=== PATIENT | female | born 1980 | race Caucasian/White ===

== ENCOUNTER → 2017-01-04 | Outpatient (CLI) | payer BC ==
[~2017-01-04] MED LIST: ACET-749 PO; DOCU-94 PO; FERR325T5 PO; LEVO88TA3 PO; PRENTAB26 PO; PRLSR20 PO; SENN-58 PO
== END | disposition home or self-care (01) ==
LOC: C.LABSPEC 14:14
PROVIDERS: ATTEND Obstetrics & Gynecology
DX: Z34.03 Encounter for supervision of normal first pregnancy, third trimester (principal)

== ENCOUNTER 2017-01-27 07:48 | Outpatient (CLI) | payer BC ==
[2017-02-09] MEDS ORDERED: ACET-749 PO (07:21)
[2017-02-09] MEDS ORDERED: SENN-58 PO (07:21)
== END 2017-01-27 09:55 | disposition home or self-care (01) ==
LOC: C.LD 07:48 → C.OPB 07:48
PROVIDERS: ATTEND Obstetrics & Gynecology
DX: O36.8130 Decreased fetal movements, third trimester, not applicable or unspecified (principal); Z3A.39 39 weeks gestation of pregnancy

== ENCOUNTER 2017-02-06 11:09 | Inpatient (IN) | payer BC ==
[~2017-02-06] VITALS: Ht 160 cm; Wt 69.1 kg
[2017-02-06] MEDS ORDERED: LACTATED RINGER'S 1000ML 1,000 ML IV PRN (11:53)
[2017-02-06] MEDS ORDERED: PATIENT'S HEIGHT AND/OR WEIGHT NEEDED SCH (12:30)
[2017-02-06] MEDS ORDERED: MISOPROSTOLTAB 50 MCG TAB PO ONE (12:30)
[2017-02-06 12:34] LABS: HEMATOCRIT 36.4 % (37-47); MEAN CELL VOLUME 89.4 fL (80-100); MEAN CORPUSCULAR HGB CONC 34.6 g/dl (32-36); MEAN PLATELET VOLUME 10.1 fL (7.4-10.4); PLATELET COUNT 233 K/uL (130-400); RED BLOOD COUNT 4.07 M/uL (4.2-5.4); WHITE BLOOD COUNT 7.67 K/uL (4.8-10.8)
[2017-02-06 15:00] VITALS: Ht 160 cm; Wt 69.1 kg
[2017-02-06] MEDS ORDERED: PRLSR20 PO (15:08)
[2017-02-06] MEDS ORDERED: DOCU-94 PO (15:08)
[2017-02-06] MEDS ORDERED: PRENTAB26 PO (15:08)
[2017-02-06] MEDS ORDERED: LEVO88TA3 PO (15:08)
[2017-02-06] MEDS: LACTATED RINGER'S 1000ML 1,000 ML IV SCH (22:37)
[2017-02-06] MEDS ORDERED: BUTORPHANOL TARTRATE 1 MG/ML VIAL IV PRN (23:15)
[2017-02-07] MEDS ORDERED: BUPIVACAINE 0.25% 30 ML VIAL ONE ×2 (01:06→15:29)
[2017-02-07] MEDS ORDERED: FENTANYL CITRATE INJ 50 MCG/1 ML 2 ML VIAL ONE ×3 (01:07→20:45)
[2017-02-07] MEDS ORDERED: EpHEDrine SULFATE INJ 50 MG/ML AMP ONE (01:07)
[2017-02-07] MEDS ORDERED: LACTATED RINGER'S 1000ML 500 ML IV PRN ×2 (01:08→02:06)
[2017-02-07] MEDS ORDERED: FENTANYL 2MCG/ML ROPIV 1.25MG/ML 100ML BAG EPI ONE (01:08)
[2017-02-07] MEDS ORDERED: NALOXONE HCL INJ 1 MG in SODIUM CHLORIDE 0.9% 1000ML 1,000 ML IV PRN (02:06)
[2017-02-07] MEDS: OXYTOCIN 30 UNITS/500ML NSS IV PRN ×2 (02:10→21:01)
[2017-02-07] MEDS ORDERED: NALOXONE HCL INJ 0.4 MG/1 ML VIAL/CARP IV PRN (02:15)
[2017-02-07] MEDS ORDERED: EpHEDrine SULFATE INJ 50 MG/ML AMP IV PRN (02:15)
[2017-02-07] MEDS ORDERED: DiphenhydrAMINE HCL 50 MG/ML VIAL IV PRN (02:15)
[2017-02-07] MEDS: ONDANSETRON INJ 2 MG/ML 2 ML VIAL IV PRN ×3 (03:18→15:33)
[2017-02-07] MEDS: PROMETHAZINE HCL INJ 12.5 MG in SODIUM CHLORIDE 0.9% 50ML 50 ML IV PRN ×2 (04:59→11:19)
[2017-02-07] MEDS: FENTANYL 2MCG/ML ROPIV 1.25MG/ML 100ML BAG EPI PRN ×6 (06:59→18:53)
[2017-02-07] MEDS: LACTATED RINGER'S 1000ML 1,000 ML IV SCH ×2 (09:55→18:35)
[2017-02-07] MEDS ORDERED: NURSING VERBAL MED ORDER ONE (15:30)
[2017-02-07] MEDS ORDERED: LACTATED RINGER'S 1000ML 1,000 ML IV SCH (21:12)
[2017-02-07] MEDS ORDERED: BENZOCAINE 20% AER SPR 82.5 GM CAN EXT PRN (21:15)
[2017-02-07] MEDS ORDERED: HYDROCORTISONE ACETATE 25 MG SUPP PR PRN (21:15)
[2017-02-07] MEDS ORDERED: DIPHTHERIA/TETANUS/PERTUSSIS 0.5 ML SYR/VIAL IM. ONE (21:15)
[2017-02-07] MEDS ORDERED: SUPERCREAM 0.870 % 15GM JAR EXT PRN (21:15)
[2017-02-07] MEDS ORDERED: LANOLIN OINT EXT PRN ×2 (21:15)
[2017-02-07] MEDS ORDERED: OXYTOCIN 30 UNITS/500ML NSS IV PRN (21:15)
[2017-02-07] MEDS ORDERED: ACETAMINOPHEN 325 MG TAB PO PRN (21:15)
--- NOTE | 2017-02-07 21:44 | Anesthesia Procedure Note ---
Anesthesia Epidural Removal Nt Date & Time Feb 07, 2017 at 21:44 Vital Signs Pain Intensity: 5.0 Notes Mental Status: alert / awake / arousable, participated in evaluation Nausea / Vomiting: adequately controlled Pain: adequately controlled Airway Patency, RR, SpO2: stable & adequate BP & HR: stable & adequate Hydration State: stable & adequate Neuraxial Anesthesia: was administered, sensory block is resolving Anesthetic Complications: no major complications apparent, pt satisfied with anesthetic care Epidural: removed without complications, with tip intact
[2017-02-07] MEDS: IBUPROFEN 600 MG TAB PO PRN (23:08)
[2017-02-08] VITALS (7 sets, daily range): BP systolic 99–104; BP diastolic 63–72; PULSE 87–104; TEMP 36.5–37; O2SAT 96–98
[2017-02-08] MEDS: HYDROmorphone HCL 2 MG TAB PO PRN ×2 (00:40→06:41)
[2017-02-08] MEDS: IBUPROFEN 600 MG TAB PO PRN ×5 (04:02→23:28)
--- NOTE | 2017-02-08 07:01 | DELIVERY SUMMARY ---
DATE OF OPERATION: 02/07/2017 PREOPERATIVE DIAGNOSES: 1. Meyers intrauterine at 41 and 1/7 weeks. 2. Premature rupture of membranes. 3. Induction of labor. 4. Group B strep negative. POSTOPERATIVE DIAGNOSES: Same plus maternal exhaustion and nonreassuring heart tones. PROCEDURE: Vacuum assisted vaginal delivery and repair of fourth degree laceration. SURGEON: Dr. León. NEEDLE LOOM OPERATOR HELPER: None. ESTIMATED BLOOD LOSS: 500. FINDINGS: Placenta spontaneous and intact with a 3-vessel cord. Terminal meconium was evident. Laceration involving the distal 1 cm of the rectal mucosa as well as complete disruption of the external anal sphincter. COMPLICATIONS: None. DISPOSITION: Stable in labor and delivery. DESCRIPTION: Nina Beltran is a G1, P0 who was seen in the office at 41 weeks gestational age, complaining of leakage of fluids since 2 days prior. On exam, the patient was found to have rupture of membranes for clear fluid. She was sent to labor and delivery for induction of labor. Her induction was started with Cytotec and ultimately Pitocin as well as rupture of a forebag. The patient was provided with an epidural for pain management. She reached complete dilation in the evening of 02/07/2017 and was coached through pushing. Although her pushing efforts were excellent, progress was slow. She did ultimately bring the head of the baby to but at that point was reaching complete exhaustion. During the second stage of labor, heart tones were intermittently category 1 but at the majority of times were showing deep decelerations, some of which were variable, many of which were late. For the very last few pushes, Nina was coached. She was offered a midline episiotomy which she accepted and this was performed. She was still unable to bring the head to and at this point she was offered a vacuum assisted vaginal delivery which she did accept. The bladder was emptied of urine via straight catheterization. The fetus was in the left occiput anterior position. A vacuum was attached to the flexion point. Suction was applied in the green zone on the Kiwi cup and during the next push, gentle traction was used to bring the head to delivery. The vacuum was dearticulated while the head was and the delivery of the remainder of the head to the neck level was accomplished spontaneously. There was noted to be a tight nuchal cord. While I was attempting to reduce this, the patient gave a spontaneous pushing effort which forced the fetus to deliver through the cord. There was no difficulty in delivering the shoulders or trunk of the . The was placed on the maternal abdomen where the cord was doubly clamped and quickly cut by the father of the baby and the was then taken to the warmer for attention. Apgars of 6 and 9 were ultimately assigned. The placenta delivered spontaneously and was found to be intact with a 3-vessel cord. There was noted to be terminal meconium. There was also a creamy white fluid noted on the placenta. It is unclear if this was vernix or what this might have been. The placenta will be sent for examination. There was no foul odor or other indication that this may have been pus. After delivery of the placenta, examination revealed a fourth degree laceration including disruption of the distal 1 cm of the rectal mucosa as well as complete disruption of the external anal sphincter and the perineal body. I asked for several extra pairs of 6-inch hand gloves be placed on the table as well as both 2-0 and 3-0 Vicryl suture. With an teachers assistant sterile gloved and holding a retractor, I was able to get excellent visualization and repair began with an imbricating suture, closing the rectal mucosa in a running locked manner. The rectal mucosa was closed from the apex down to the anal verge. Clamps were then used to identify and grasp the disrupted ends of the external anal sphincter and its capsule. Four [id number] sutures were used on the anterior, posterior, superior and inferior aspects in order to completely reapproximate this in an end-to-end fashion. Repair then proceeded as would be normal for a second degree laceration including repair of the vaginal posterior laceration from the apex down to the introitus. A crown suture was placed using 2-0 Vicryl and a second crown was placed just below this to completely reapproximate and strengthen the perineal body. The skin was then closed over the perineum from the anus up to the posterior fourchette using the 3-0 Vicryl. At the completion of repair, both hemostasis and complete cosmetic reapproximation had been achieved. One final rectal exam was performed, which did reveal that there were no sutures palpable and no defect in the rectum remained. The patient was advised of her fourth degree tear and the need to avoid constipation and use stool softeners and to not avoid a bowel movement and create constipation. At the present time, both mother and are in their delivery room, having tolerated the procedure well. I attest to the content of the Intraoperative Record and any orders documented therein. Any exceptio ns are noted below.
--- NOTE | 2017-02-08 07:05 | Progress Note ---
Subjective Feb 08, 2017. Subjective conversation w/ patient, physical exam Ambulation: limited ambulation (pain in vaginal area when walking) Voiding: no voiding problems Passing Gas: Yes Diet Tolerance: Regular Diet Lochia: Small Feeding Type: Breast Feeding Review of Systems Constitutional: No chills, No fever Respiratory: No cough, No shortness of breath Cardiac: No chest pain, No edema Abdomen: No nausea, No pain, No vomiting Objective Vital Signs Date Time Temp Pulse Resp B/P Pulse Ox O2 Delivery O2 Flow Rate FiO2 02/08/17 03:30 36.6 99 18 102/64 Physical Exam General Appearance: WELL-APPEARING, NO APPARENT DISTRESS Respiratory/Chest: lungs clear, no respiratory distress Cardiovascular: regular rate, rhythm, no murmur Abdomen: non tender Fundus: Firm, Non-Tender, Relation to Umbilicus (at the umbilicus) Extremities: non-tender, no calf tenderness Laboratory Results Last 24 Hours Test 02/08/17 06:19 Assessment and Plan Post- Day#: 1 Continue Routine Care: Resident Physician Supervision Note: I interviewed and examined the patient. Discussed with Dr. Vaughn and agree with findings and plan as documented in the note. Any exceptions or clarifications are listed here: Pain adequately controlled with dilaudid. + flatus, no BM yet. Fourth degree laceration. Documented By: Henny León s/p Day 1 - vital reviewed and wnl - Blood: B+, GBS-, Rubella immune - Encourage ambulation, encourage breast feeding and monitor lochia - Receiving dilaudid and ibuprofen for pain relief - CONTINUE ROUTINE POST CARE
[2017-02-08 07:36] LABS: HEMATOCRIT 24.3 % (37-47)
[2017-02-08] MEDS: DOCUSATE SODIUM 100 MG CAP PO SCH ×2 (08:27→19:40)
[2017-02-08] MEDS: PRENATAL VITAMIN TAB PO SCH (08:28)
[2017-02-08] MEDS: LEVOTHYROXINE 88 MCG TAB PO SCH (09:40)
[2017-02-08] MEDS ORDERED: NURSING VERBAL MED ORDER ONE (19:30)
[2017-02-08] MEDS ORDERED: BISACODYL 5 MG TABEC PO SCH (20:00)
[2017-02-08] MEDS: ACETAMINOPHEN/CODEINE 300/30MG TAB PO PRN (20:34)
[2017-02-09] MEDS: ACETAMINOPHEN/CODEINE 300/30MG TAB PO PRN (03:25)
--- NOTE | 2017-02-09 06:58 | Progress Note ---
Subjective Feb 09, 2017. Subjective conversation w/ patient Ambulation: ambulating normally Voiding: no voiding problems Passing Gas: Yes Diet Tolerance: Regular Diet Lochia: Small Feeding Type: Breast Feeding Pain: vaginal pain where stiches are Review of Systems Constitutional: No chills, No fever Respiratory: No cough, No shortness of breath Cardiac: No chest pain, No palpitations Objective Vital Signs Date Time Temp Pulse Resp B/P Pulse Ox O2 Delivery O2 Flow Rate FiO2 02/08/17 23:30 36.8 89 14 103/72 Room Air 02/08/17 23:30 Room Air 02/08/17 19:45 37.0 104 18 104/63 96 Room Air 02/08/17 14:55 98 Room Air 02/08/17 14:55 36.5 95 18 103/67 98 Room Air 02/08/17 12:05 36.7 87 16 100/66 98 Room Air 02/08/17 08:00 36.5 96 18 99/63 Room Air 02/08/17 07:45 98 Room Air Physical Exam General Appearance: WELL-APPEARING, NO APPARENT DISTRESS Respiratory/Chest: lungs clear, no respiratory distress Cardiovascular: regular rate, rhythm, no murmur Fundus: Firm, Non-Tender, Relation to Umbilicus (at the umbilicus) Extremities: non-tender, no calf tenderness Assessment and Plan Post- Day#: 2 Continue Routine Care: s/p Day 2 - vital reviewed and wnl - Hgb reviewed and 8.3 today (will send home with iron supplementation) - Blood: B+, GBS-, Rubella immune - 4th degree tear and using T3's for pain relief (Dr. Tirado will write d/c script) - Limited ambulation after trial of ambulation yesterday - Encourage breast feeding, monitor lochia - Patient counselled on discharged instructions - PATIENT TO BE DISCHARGED TODAY Resident Physician Supervision Note: I interviewed and examined the patient. Discussed with Dr. Vaughn and agree with findings and plan as documented in the note. Any exceptions or clarifications are listed here: Discussed care of 4th degree. Importance of sitz baths tid, along with stool softener/laxatives Documented By: Henry Tirado
[2017-02-09] MEDS ORDERED: FERR325T5 PO (07:01)
--- NOTE | 2017-02-09 07:03 | Discharge Instructions ---
Discharge Instructions Date of Service Feb 09, 2017. Admission Reason for Admission: R/O Labor Discharge Discharge Diagnosis / Problem: Spontaneous Vaginal Delivery Discharge Goals Goal(s): Routine recovery after delivery Medications Continue Dispensed Medications: supercream, dermaplast, tucks, lansinoh Activity Recommendations Activity Limitations: per Instructions/Follow-up section . Instructions / Follow-Up Instructions / Follow-Up ACTIVITY RECOMMENDATIONS: * Gradual return to full activity over the next 2-3 weeks. * No lifting - nothing heavier than baby over the next 2-3 weeks. * Do not engage in vigorous exercise, sexual activity or sports until cleared by your physician. * Do not drive or operate any motorized equipment until cleared by your physician. * You may shower/bathe daily. MEDICATIONS: For discomfort or pain, you may use Acetaminophen (Tylenol), Ibuprofen (Advil), or Naproxen (Aleve) following the package directions. For constipation you may use Colace following the package directions. BREAST CARE: If you are not breast feeding: * Wear a supportive bra 24 hours a day for one to two weeks. * Avoid stimulating your breasts and nipples as much as possible during the first few weeks after delivery. * When taking a shower, have the warm water hit your back, not breasts. * When your breasts feel full, apply ice packs. Usually three to four times a day helps ease the discomfort. * Take a mild pain medication (Tylenol / Motrin) when you are uncomfortable. If breast feeding: * Use breast milk to lubricate nipples. Lansinoh cream may be used for sore nipples. You do not need to remove cream prior to breast feeding. If using a different brand of cream, check the label for directions regarding removal of cream prior to nursing. * Wear a supportive bra. * If having problems with breasts or breast feeding, call a medical social consultant or your health care provider. EPISIOTOMY CARE: After delivery, if you have an episiotomy (stitches), the following steps will ease discomfort and aid healing. * For the first 24 hours after delivery, place ice packs next to your episiotomy to help reduce swelling. * After the first 24 hour-period, sitz baths, either portable or in the tub, are suggested. A shower with a shower arm sprayed over the episiotomy may be comforting. * Marga care should be done after each voiding and bowel movement. Squirt warm water from a plastic bottle over the perineum (region of the body between the anus and urinary opening) and pat dry. * Use Dermoplast to ease discomfort. Shake container. [place] directly over the episiotomy. Place a Tucks on a clean sanitary pad next to your episiotomy. SPECIAL CARE INSTRUCTIONS: When you are discharged from the hospital, it is important for you to follow the instructions listed below: * During the first week at home, you should be able to care for yourself and your baby. In addition, the usual light household activities are encouraged. * Limit your activities to the way you feel. Do not try to clean the house or move furniture. Be sensible. * If you actively engage in sports and have done so up until the time of your delivery, you may resume these activities as soon as you feel able. This may take up to one month or even longer. Use good judgment. * Continue to take your vitamins for at least six weeks after the of your baby. * Your diet need not be limited unless you were on a special diet before your delivery. Breast-feeding mothers need around 2500 calories per day and at least 64-80 ounces of fluid per day (8 to 10 glasses). * You should eat foods from the four major food groups. Crash diets or fad diets are to be avoided. Eating lean meats, fresh fruits and vegetables, low-fat dairy products, high fiber foods and a regular exercise program, will help you get back to your pre- weight without putting your health at risk. * Constipation is sometimes a problem after delivery. Take a mild laxative as needed. If breast feeding, Milk of Magnesia is acceptable to use. You may use a suppository or Fleets enema if no episiotomy. * A daily shower or tub bath is suggested. Be sure to thoroughly and gently dry the perineum. * A bloody vaginal discharge will usually continue until around four weeks post . A small amount of bleeding may continue for as long as six weeks. Vaginal discharge changes from the bright red bleeding after delivery to pink then brownish and finally yellowish-pink before becoming white and disappearing. * Bleeding may increase with activity. Your first period may come in 4-8 weeks. If you are breast feeding, your period may be delayed even longer. * [place] (sex) can begin whenever both you and your partner feel comfortable and do not have any form of genital infection. It is recommended that you wait at least six weeks for internal and external healing to occur. If you have questions, please talk to your health care practitioner. A condom should be used to prevent infection and . * Foreplay, gentle intercourse and lubrication is very important the first several times to prevent pain. A water-based lubricant such as K-Y jelly or Astroglide may be used. * If you have RH negative blood and your baby is RH positive, you will receive RHOGAM by injection prior to discharge. The nurse will give you a card to keep with you that has the date and place that you received RHOGAM after delivery. * During your care, you had a Rubella screen done to check for the presence of rubella antibodies in your blood. If your test was negative, you will receive a Rubella vaccine prior to discharge. This vaccine may cause a fever, soreness at the injection site and flu-like symptoms. If these symptoms persist, notify your health care practitioner. is not advised for one month after a Rubella vaccine. * Verbalizes understanding of car seat law as reviewed with patient nursing. * Car Seat hand-out given and reviewed with patient by nursing. * Shaken baby information reviewed with patient by nursing. Call you doctor if: * Heavy bleeding (saturating several pads an hour) or passing clots the size of your fist. * A fever >101 degrees F (38.3 degrees C) on two occasions four hours apart and /or chills. * Unusual pain in the pelvic or vaginal areas. * "Baby Blues" lasting longer than two weeks. If you have any questions or concerns, call your health care practitioner at . FOLLOW UP VISIT: * Please call the office at to schedule a 6 week examination. It is important you keep this appointment. It is important for you to make arrangements for either yearly or twice yearly check-ups thereafter. Current Hospital Diet Patient's current hospital diet: Regular OB Diet Discharge Diet Recommended Diet: Regular Diet Pending Studies Studies pending at discharge: no Medical Emergencies . Who to Call and When: Medical Emergencies: If at any time you feel your situation is an emergency, please call [phone] immediately. . Non-Emergent Contact Non-Emergency issues call your: Primary Care Provider, Transformation Consultant . . "Provider Documentation" section prepared by Víctor Vaughn. VTE Core Measure Inpt VTE Proph given/why not?: Treatment not indicated
[2017-02-09] MEDS ORDERED: ACET-749 PO (07:21)
[2017-02-09] MEDS ORDERED: SENN-58 PO (07:21)
[2017-02-09] MEDS: PRENATAL VITAMIN TAB PO SCH (07:44)
[2017-02-09] MEDS: DOCUSATE SODIUM 100 MG CAP PO SCH (07:44)
[2017-02-09] MEDS: LEVOTHYROXINE 88 MCG TAB PO SCH (07:44)
[2017-02-09 07:45] VITALS: BP 105/70; PULSE 93; TEMP 36.6; O2SAT 99
[2017-02-09 08:00] VITALS: BP 105/70; PULSE 93; TEMP 36.6; O2SAT 99
[2017-02-09] MEDS: IBUPROFEN 600 MG TAB PO PRN ×2 (08:36→12:52)
[2017-02-09 11:36] VITALS: BP_DIAS 70; PULSE 93; TEMP 36.6
== END 2017-02-09 16:03 | disposition home or self-care (01) | DRG 775 ==
LOC: C.LD 11:09 → C.OPB 11:09 → C.LD 11:56 → C.OPB 11:56 → C.OBG 02-07 23:29
PROVIDERS: ADMIT Obstetrics & Gynecology; ATTEND Obstetrics & Gynecology
PROC: 0DQP0ZZ Repair Rectum, Open Approach (ICD-10-PCS; principal; 2017-02-07)
PROC: 10D07Z6 Extraction of Products of Conception, Vacuum, Via Natural or Artificial Opening (ICD-10-PCS; principal; 2017-02-07)
PROC: 3E0P7GC Introduction of Other Therapeutic Substance into Female Reproductive, Via Natural or Artificial Opening (ICD-10-PCS; principal; 2017-02-07)
PROC: 0DQR0ZZ Repair Anal Sphincter, Open Approach (ICD-10-PCS; principal; 2017-02-07)
PROC: 0W8NXZZ Division of Female Perineum, External Approach (ICD-10-PCS; principal; 2017-02-07)
PROC: 3E033VJ Introduction of Other Hormone into Peripheral Vein, Percutaneous Approach (ICD-10-PCS; principal; 2017-02-07)
DX: O42.12 Full-term premature rupture of membranes, onset of labor more than 24 hours following rupture (principal); O70.3 Fourth degree perineal laceration during delivery; O70.4 Anal sphincter tear complicating delivery, not associated with third degree laceration; O70.1 Second degree perineal laceration during delivery; O75.81 Maternal exhaustion complicating labor and delivery; O69.1XX0 Labor and delivery complicated by cord around neck, with compression, not applicable or unspecified; O76 Abnormality in fetal heart rate and rhythm complicating labor and delivery; Z3A.41 41 weeks gestation of pregnancy; Z37.0 Single live birth

== ENCOUNTER → 2017-06-30 | Outpatient (CLI) | payer BC ==
[~2017-06-30] MED LIST changes: -DOCU-94 PO
--- NOTE | 2017-06-30 09:31 | DIAGNOSTIC IMAGING REPORT ---
TWO VIEW CHEST CLINICAL HISTORY: Hodgkin's lymphoma. FINDINGS: PA and lateral chest radiographs are compared to study dated 06/18/2014. The cardiomediastinal silhouette is unremarkable. The lungs and pleural spaces are clear. Apical scarring is observed. There is no pneumothorax. The bony thorax appears intact. IMPRESSION: No active disease in the chest. Electronically signed by: Keenan Palomo M.D. 06/30/2017 9:30 AM Dictated Date/Time: 06/30/2017 9:29 AM
== END | disposition home or self-care (01) ==
LOC: C.RAD 08:48
PROVIDERS: ATTEND Nurse Practitioner Family
DX: Z85.71 Personal history of Hodgkin lymphoma (principal); Z92.3 Personal history of irradiation

== ENCOUNTER → 2017-08-03 | Outpatient (CLI) | payer BC | END | disposition home or self-care (01) | LOC: C.MAMM 14:18 | PROVIDERS: ATTEND Nurse Practitioner Family | DX: M81.0 Age-related osteoporosis without current pathological fracture (principal); M85.88 Other specified disorders of bone density and structure, other site; M85.851 Other specified disorders of bone density and structure, right thigh; M85.852 Other specified disorders of bone density and structure, left thigh ==

== ENCOUNTER → 2017-08-18 | Outpatient (CLI) | payer BC ==
--- NOTE | 2017-08-18 14:37 | DIAGNOSTIC IMAGING REPORT ---
PELVIS BILATERAL HIP 2 CLINICAL HISTORY: Bilateral hip pain. COMPARISON: None FINDINGS: The sacroiliac joints and symphysis pubis are intact. There is no acute fracture within the pelvis or hips. There is no radiographic evidence for avascular necrosis of the femoral heads. The hip joint spaces are preserved. There is minimal osteophytosis of both hips, slightly greater on the right. IMPRESSION: 1. No acute fracture within the pelvis or hips. 2. Minimal osteophytosis of the bilateral hips. Electronically signed by: Charles Kincaid M.D. 08/18/2017 2:36 PM Dictated Date/Time: 08/18/2017 2:35 PM
== END | disposition home or self-care (01) ==
LOC: C.RDSM 13:34
PROVIDERS: ATTEND Family Medicine
DX: M25.551 Pain in right hip (principal); M25.552 Pain in left hip

== ENCOUNTER → 2017-10-05 | Outpatient (CLI) | payer BC ==
--- NOTE | 2017-10-05 09:06 | DIAGNOSTIC IMAGING REPORT ---
RIGHT SHOULDER ULTRASOUND CLINICAL HISTORY: LOCAL SWELLINGwithin the right shoulder. COMPARISON STUDY: None. FINDINGS: Real-time sonographic imaging of the right shoulder was performed at the patient's area of interest. There is no evidence for a mass or fluid collection within the right shoulder soft tissues. IMPRESSION: No sonographic abnormality within the right shoulder region. Electronically signed by: Thai Fong M.D. 10/05/2017 9:05 AM Dictated Date/Time: 10/05/2017 9:04 AM
== END | disposition home or self-care (01) ==
LOC: C.ULTR 08:45
PROVIDERS: ATTEND Nurse Practitioner Family
DX: R22.9 Localized swelling, mass and lump, unspecified (principal)

== ENCOUNTER → 2018-03-23 | Outpatient (CLI) | payer OTHER ==
--- NOTE | 2018-03-26 07:46 | MAMMOGRAPHY REPORT ---
BILATERAL DIGITAL SCREENING MAMMOGRAM TOMOSYNTHESIS WITH CAD: 03/23/2018 CLINICAL HISTORY: Routine screening. Patient has no complaints. TECHNIQUE: Breast tomosynthesis in addition to standard 2D mammography was performed. Current study was also evaluated with a Computer Aided Detection (CAD) system. COMPARISON: Comparison is made to exam dated: 10/05/2010 mammogram. BREAST COMPOSITION: The tissue of both breasts is extremely dense, which lowers the sensitivity of m ammography. FINDINGS: No suspicious masses, calcifications, or areas of architectural distortion are noted in ei ther breast. There has been no significant interval change compared to prior exams. IMPRESSION: ACR BI-RADS CATEGORY 1: NEGATIVE There is no mammographic evidence of malignancy. A 1 year screening mammogram is recommended. The pa tient will receive written notification of the results. Approximately 10% of breast cancers are not detected with mammography. A negative mammographic report should not delay biopsy if a clinically suggestive mass is present. Kelley Bennett M.D. ah/:03/23/2018 15:31:14 Tours Captain: Alessandra MENDOZA(Leroy)(M), [facility] letter sent: Normal 1/2 BI-RADS Code: ACR BI-RADS Category 1: Negative
== END | disposition home or self-care (01) ==
LOC: C.MAMM 15:03
PROVIDERS: ATTEND Nurse Practitioner Family
DX: Z12.31 Encounter for screening mammogram for malignant neoplasm of breast (principal)

== ENCOUNTER → 2018-07-03 | Outpatient (CLI) | payer OTHER ==
[~2018-07-03] MED LIST changes: -ACET-749 PO; +ACET300T3 PO
== END | disposition home or self-care (01) ==
LOC: C.LABSPEC 11:56
PROVIDERS: ATTEND Obstetrics & Gynecology
DX: O09.521 Supervision of elderly multigravida, first trimester (principal); Z3A.00 Weeks of gestation of pregnancy not specified

== ENCOUNTER → 2018-07-09 | Outpatient (CLI) | payer OTHER ==
[2018-07-09 12:18] LABS: BASO % 0.4 %; BASO ABS # 0.02 K/uL (0-0.2); EOS % 0.2 %; EOS ABS # 0.01 K/uL (0-0.5); HEMATOCRIT 38.4 % (37-47); HEMOGLOBIN 13.3 g/dL (12.0-16.0); LYMPH % 26.8 %; LYMPH ABS # 1.49 K/uL (1.2-3.4); MEAN CELL VOLUME 88.5 fL (80-100); MEAN CORPUSCULAR HEMOGLOBIN 30.6 pg (25-34); MEAN CORPUSCULAR HGB CONC 34.6 g/dl (32-36); MEAN PLATELET VOLUME 9.9 fL (7.4-10.4); MONO % 7.6 %; MONO ABS # 0.42 K/uL (0.11-0.59); NEUT ABS # 3.61 K/uL (1.4-6.5); PLATELET COUNT 286 K/uL (130-400); RED CELL DISTRIBUTION WIDTH CV 12.4 % (11.5-14.5); RED CELL DISTRIBUTION WIDTH SD 39.7 fL (36.4-46.3); WHITE BLOOD COUNT 5.55 K/uL (4.8-10.8)
== END | disposition home or self-care (01) ==
LOC: C.LAB1850 09:28
PROVIDERS: ATTEND Obstetrics & Gynecology
DX: O09.521 Supervision of elderly multigravida, first trimester (principal); Z3A.00 Weeks of gestation of pregnancy not specified

== ENCOUNTER 2019-02-07 05:27 | Inpatient (IN) ==
--- NOTE | 2019-02-05 14:08 | PAT Medication Instructions ---
Medication Instructions Date of Service February 05, 2019 Home Medications PNV cmb#95-ferrous fumarate-FA 1 tab PO QAM calcium carbonate [Calcium 500] 500 mg PO QAM levothyroxine 100 mcg PO QAM omeprazole 20 mg PO DAILY DO NOT take the morning of surgery PNV cmb#95-ferrous fumarate-FA 1 tab PO QAM calcium carbonate [Calcium 500] 500 mg PO QAM Take morning of surgery With a small sip of water, OTHERWISE NOTHING TO EAT OR DRINK AFTER MIDNIGHT: levothyroxine 100 mcg PO QAM omeprazole 20 mg PO DAILY Other Notes If you have any questions please call us at [phone] or [phone] or [phone] or [phone]
--- NOTE | 2019-02-06 09:57 | Anesthesiology Consultation ---
Date of Service February 06, 2019 Assessment & Plan (1) Encounter for pre-operative examination: - Per OB, no preop labs to be done at [facility]. - Patient for primary c/s 2/2 fourth degree tear with prior vaginal delivery. Chart Review Chart Review: Acceptable Risk for Surgery and Patient seen in Pre Admission Testing Teaching & Discussion Pre-Anesthesia Teaching/Discussion Notes: Instructed NPO after midnight before surgery,except medications with 15 cc of water. Medication instructions provided according to the [facility] guidelines. History Surgery Operation Date: 02/07/19 07:30 Proposed Procedures p Section - Henry Tirado Jr, MD, FACOG Height/Weight Height: 5 ft 3 in Weight: 67.6 kg Allergies Allergy/AdvReac Type Severity Reaction Status Date / Time acetaminophen [From Percocet] AdvReac VOMITING Verified 02/06/19 10:19 oxycodone [From Percocet] AdvReac VOMITING Verified 02/06/19 10:19 Medications Home Medications Medication Instructions Recorded Confirmed Last Taken PNV cmb#95-ferrous fumarate-FA 1 tab PO QAM 01/31/19 01/31/19 Unknown [] calcium carbonate [Calcium 500] 500 mg PO QAM 01/31/19 01/31/19 Unknown levothyroxine 100 mcg PO QAM 01/31/19 01/31/19 Unknown omeprazole 20 mg PO DAILY 01/31/19 01/31/19 Unknown Past Medical History Medical History GERD (gastroesophageal reflux disease) History of Hodgkin's disease DX 1999= S/P CHEMO/XRT [id number] Hypothyroidism Past Surgical History Surgical History History of epidural anesthesia LABOR EPIDURAL= 02/07/17= EPIDURAL AT L3-L4 X 1 ATTEMPT AT [facility]; GOOD PAIN CONTROL WITH EPIDURAL PER PATIENT History of surgery MEDIPORT INSERTION AND REMOVAL History of tonsillectomy Past Anesthesia History No Hx of Anesthesia Complications and No Family Hx of Anesthesia Complications History of PONV No Motion Sickness Screening History of Motion Sickness: Yes (OCCASIONAL) Social History Smoking Status: Never smoker Do You Dip or Chew Tobacco: No Hx Alcohol Use: No Hx Substance Use: No substance use type: does not use Exercise / Class Metabolic Activity II 4-5 Yardwork/Stairs/Walk up hill Review of Systems Patient reports LBP, reflux with . Patient denies chest pain, shortness of breath, dyspnea on exertion, cough, wheezing, palpitations. Physical Exam Vital Signs VITALS BP 105/66 P 89 TEMP 98.4 SP02 97%RA RESP 18 PHYSICAL Full neck and c-spine range of motion. Full TMJ range of motion. TMD 4 finger breaths Mallampati Score 2 Dentition: intact Lungs: clear throughout to auscultation Cardiac: regular rate and rhythm, no murmurs noted Spine: normal Extremities: no edema
--- NOTE | 2019-02-06 10:09 | History and Physical Report ---
DATE OF ADMISSION: 02/07/2019 NOTICE TO RECEIVING REPUBLICAN/AGENCY This information is strictly Confidential and protected under [place] law. [place] law prohibits you from making any further disclosure of this information unless further disclosure is expressly permitted by the written consent of the person to whom it pertains or is authorized by law. A general authorization for the release of medical or other information is not sufficient for this purpose. Hospital accepts no responsibility if the information is made available to any other person, INCLUDING THE PATIENT. ADMITTING DIAGNOSES: 1. Term . 2. Previous fourth degree laceration with complications. 3. Desired elective section. ADMISSION HISTORY: The patient is a 38-year-old 2, para 1 with an EDC of 14 February by dates and first trimester ultrasound who is admitted for an elective primary section. The patient's first was complicated by a fourth degree tear which required 2 repairs. The patient had been counseled about this and has elected to have a primary section. The patient has had a benign course. Blood type show a blood type of B positive, antibody negative, rubella immune, hepatitis B negative. She had a negative cell free DNA screen. She had an elevated 1-hour Glucola at 28 weeks with a normal 2-hour glucose tolerance test. She had negative third trimester beta strep culture. PAST MEDICAL HISTORY: OBSTETRICAL: As above. PATENT ATTORNEY: None. MEDICAL: Hodgkin's lymphoma in 1999, depression, hypothyroidism. SURGICAL: As above. ALLERGIES: PERCOCET CAUSING NAUSEA AND VOMITING. SOCIAL HISTORY: No smoking. FAMILY HISTORY: Noncontributory. REVIEW OF SYSTEMS: As per HPI. ADMISSION PHYSICAL EXAMINATION: GENERAL: Shows a gravid female in no acute distress. VITAL SIGNS: Blood pressure 100/70, weight 149 pounds. HEENT EXAMINATION: Unremarkable. NECK: Supple. LUNGS: Clear. HEART: With a regular rhythm and rate. ABDOMEN: Gravid, vertex, positive heart tones, estimated weight 7.5 pounds. PELVIC: Deferred. EXTREMITIES: Shows no deep calf tenderness. NEUROLOGIC: Grossly intact. IMPRESSION: A 38-year-old 2, para 1 at 39 weeks gestational age for elective primary section. PLAN: Risks, benefits and alternatives to surgery have been discussed. While benefits will be delivery of the infant, the risks are bleeding, infection, inadvertent injury to bowel or bladder, wound infection, readmission, reoperation. The patient understands that. Permit has been signed and she wishes to proceed.
[2019-02-07] MEDS ORDERED: LACTATED RINGER'S 1,000 ML IV SCH ×3 (05:45→10:49)
[2019-02-07] MEDS ORDERED: CITRIC ACID/SODIUM CITRATE 15 ML UDC PO SCH (06:00)
[2019-02-07] MEDS ORDERED: CEFAZOLIN 2,000 MG in SYRINGE 0 ML IV SCH (06:00)
[2019-02-07 06:01] LABS: Basophils # (auto) 0.02 K/uL (0-0.2); Basophils % (auto) 0.2 %; Eosinophils # (auto) 0.05 K/uL (0-0.5); Eosinophils % (auto) 0.5 %; Hematocrit (blood only) 36.8 % (37-47); Hemoglobin 12.3 g/dL (12.0-16.0); Immature Granulocytes # (auto) 0.04 K/uL (0.00-0.02); Immature Granulocytes % (auto) 0.4 %; Lymphocytes % (auto) 27.4 %; Mean Platelet Volume 10.7 fL (7.4-10.4); Monocytes # (auto) 0.84 K/uL (0.11-0.59); Monocytes % (auto) 9.2 %; Neutrophils # (auto) 5.68 K/uL (1.4-6.5); Neutrophils % (auto) 62.3 %; Platelet Count 230 K/uL (130-400); RDW Coefficient of Variation 13.3 % (11.5-14.5); RDW Standard Deviation 44.4 fL (36.4-46.3); White Blood Count 9.13 K/uL (4.8-10.8)
[2019-02-07 06:04] LABS: Mean Corpuscular Hgb Conc 33.4 g/dL (32-36)
--- NOTE | 2019-02-07 07:11 | History & Physical Bridge Note ---
Date of Service February 07, 2019 History & Physical Bridge Note I have examined the patient, reviewed the History & Physical and in the interval since the performance of the History & Physical I have noted the following changes of clinical significance: no changes noted
[2019-02-07] MEDS ORDERED: fentaNYL citrate 100 MCG/2 ML VIAL ONE (07:12)
[2019-02-07] MEDS ORDERED: MoRPHine SULFATE PF 1 MG/ML 10 ML AMP/VIAL ONE (07:12)
[2019-02-07] MEDS: LACTATED RINGER'S 1,000 ML IV SCH (07:16)
[2019-02-07] MEDS ORDERED: MoRPHine SULFATE PF 1 MG/ML 10 ML AMP/VIAL INT SPINAL ONE (07:38)
[2019-02-07] MEDS ORDERED: OXYTOCIN 10 UNITS/ML VIAL ONE ×2 (08:05→08:06)
[2019-02-07] MEDS ORDERED: PHENYLEPHRINE 100MCG/ML 5ML SYR ONE (08:06)
[2019-02-07] MEDS ORDERED: PHENYLEPHRINE HCL 10 MG/ML VIAL ONE (08:06)
[2019-02-07] MEDS ORDERED: PROMETHAZINE HCL INJ 25 MG/ML 1 ML VIAL ONE (08:19)
[2019-02-07] MEDS ORDERED: DiphenhydrAMINE HCL 50 MG/ML VIAL ONE (08:30)
[2019-02-07] MEDS ORDERED: NALOXONE HCL 0.08 MG in SYRINGE 1.8 ML IV PRN (08:40)
[2019-02-07] MEDS ORDERED: NALOXONE HCL 0.4 MG/1 ML VIAL/CARP IV PRN (08:40)
[2019-02-07] MEDS ORDERED: PROMETHAZINE HCL 25 MG in SODIUM CHLORIDE 0.9% 50 ML IV PRN (08:40)
[2019-02-07] MEDS ORDERED: NALOXONE HCL 1 MG in SODIUM CHLORIDE 0.9% 1000ML 1,000 ML IV PRN (08:40)
[2019-02-07] MEDS ORDERED: ePHEDrine sulfate 50 MG/ML AMP IV PRN (08:40)
[2019-02-07] MEDS ORDERED: NALBUPHINE HCL INJ 10 MG/ML AMP IV PRN (08:40)
[2019-02-07] MEDS ORDERED: ONDANSETRON INJ 2 MG/ML 2 ML VIAL IV PRN (08:40)
[2019-02-07] MEDS ORDERED: LACTATED RINGER'S 500 ML IV PRN (08:40)
[2019-02-07] MEDS ORDERED: NO NARCOTICS OR SEDATIVES SCH (08:45)
[2019-02-07] MEDS ORDERED: SODIUM CHLORIDE 0.9% 1000ML 1,000 ML IV SCH (08:45)
--- NOTE | 2019-02-07 08:51 | Operative Report ---
Post Operative Report Pre & Post Diagnosis Operation Date: 02/07/19 07:30 <No data on this case meets the specified criteria> Procedure Operation Date: 02/07/19 07:30 <No data on this case meets the specified criteria> Surgeon Henry Tirado Assist: Miah Salgado, I attest to the content of the Intraoperative Record and any orders documented therein. Any exceptions are noted below.
[2019-02-07 08:58] LABS: Base Excess Cord Arterial Bld -0.1 mEq/L (-9-1.8); CO2 Cord Arterial Blood 52 mmHg (39.1-73.5); HCO3 Cord Arterial Blood 27 mmol/L (19.7-28.5); pH Cord Arterial Blood 7.33 (7.1-7.38)
[2019-02-07] MEDS ORDERED: DiphenhydrAMINE HCL 50 MG/ML VIAL IV PRN (09:00)
--- NOTE | 2019-02-07 09:03 | Operative Report ---
Post Operative Report Pre & Post Diagnosis Operation Date: 02/07/19 07:30 <No data on this case meets the specified criteria> Procedure Operation Date: 02/07/19 07:30 <No data on this case meets the specified criteria> Post Operative Findings: Delivered a viable Male : 9,9. Ht- 19.5 in, Wt- 7 lbs. 2 oz. Normal appearing uterus, tubes and ovaries b/l Specimens: Placenta not held, Cord Blood, Cord gases pending Drains: King in place Surgeon Henry Tirado Jr., MD Relations Liaison Miah Salgado DO Estimated Blood Loss 800 Specimens cord blood, cord gases pending Description of Procedure C/S I attest to the content of the Intraoperative Record and any orders documented therein. Any exceptions are noted below. Resident Activity Tracking Resident Involvement: Resident Care Provided Care Provided: OB Delivery
[2019-02-07 09:05] LABS: Base Excess Cord Venous Blood -1.9 mEq/L (-7.7-1.9); Cord Venous Blood HCO3 23 mmol/L (18.4-26.8); Cord Venous Blood PCO2 38 mmHg (30.4-57.2); Cord Venous Blood PO2 32 mmHg (14.1-43.3)
--- NOTE | 2019-02-07 10:34 | Anesthesiology Progress Note ---
Date of Service February 07, 2019 Anesthesia Post Procedure Vital Signs Vital Signs: Temp Pulse Resp BP Pulse Ox 02/07/19 10:31 93 H 131/87 02/07/19 10:29 86 99 02/07/19 10:24 86 99 02/07/19 10:21 92 H 141/91 H 02/07/19 10:19 88 99 02/07/19 10:14 84 99 02/07/19 10:11 85 140/93 02/07/19 10:09 85 99 02/07/19 10:04 92 H 100 02/07/19 10:01 75 133/88 02/07/19 09:59 83 99 02/07/19 09:54 80 99 02/07/19 09:51 73 133/85 02/07/19 09:49 76 98 02/07/19 09:44 79 99 02/07/19 09:41 82 124/77 02/07/19 09:40 18 02/07/19 09:39 97 H 99 02/07/19 09:34 98 H 98 02/07/19 09:31 82 115/63 02/07/19 09:30 18 02/07/19 09:29 84 98 02/07/19 09:24 86 97 02/07/19 09:22 87 119/57 L 02/07/19 09:19 82 98 02/07/19 09:14 87 97 02/07/19 09:12 99 H 119/87 02/07/19 09:09 97 H 96 02/07/19 09:04 94 H 97 02/07/19 09:01 94 H 115/80 02/07/19 08:59 88 97 02/07/19 08:57 90 92 02/07/19 08:54 96 H 97 02/07/19 08:51 93 H 112/80 02/07/19 08:50 20 02/07/19 08:49 98 H 95 02/07/19 08:46 98 H 102/70 93 02/07/19 08:44 104 H 95 02/07/19 08:40 36.3 C L 114 H 20 94 02/07/19 08:39 114 H 93 02/07/19 05:55 36.6 C 105 H 16 104/68 02/07/19 05:52 105 H 104/68 02/07/19 05:40 105 H 104/68 Notes Mental Status: alert / awake / arousable Patient Amnestic to Procedure: Yes Nausea / Vomiting: adequately controlled Pain: adequately controlled Airway Patency, RR, SpO2: stable & adequate BP & HR: stable & adequate Hydration State: stable & adequate Neuraxial Anesthesia: was administered and sensory block is resolving Anesthetic Complications: no major complications apparent
[2019-02-07] MEDS ORDERED: DIPHTHERIA/TETANUS/PERTUSSIS 0.5 ML SYR/VIAL IM ONE (10:49)
[2019-02-07] MEDS ORDERED: BENZOCAINE 20% AER SPR 82.5 GM CAN EXT PRN (10:49)
[2019-02-07] MEDS ORDERED: SUPERCREAM 0.870% 15 GM JAR EXT PRN (10:49)
[2019-02-07] MEDS ORDERED: HYDROCORTISONE ACETATE 25 MG SUPP PR PRN (10:49)
--- NOTE | 2019-02-07 10:54 | Operative Report ---
DATE OF OPERATION: 02/07/2019 PREOPERATIVE DIAGNOSES: 1. Term . 2. Previous fourth-degree laceration. 3. Desired elective primary section. POSTOPERATIVE DIAGNOSES: 1. Term . 2. Previous fourth-degree laceration. 3. Desired elective primary section. PROCEDURE PERFORMED: Primary low cervical transverse section. SURGEON: Henry Tirado MD PLATING DEPARTMENT HELPER: Dr. Miah Salgado. ANESTHESIA: Spinal. FINDINGS: Viable male infant with Apgars of 9 and 9, and weight of 7 pounds 8 ounces. Arterial and venous cord gases pending. Normal-appearing tubes and ovaries bilaterally. PROCEDURE IN DETAIL: The patient was taken to the operating room and after spinal anesthesia, was placed in supine position and draped and prepped in the usual fashion. Pfannenstiel type incision was made. Underlying subcutaneous tissue was dissected down to the ventral abdominal fascia, which was nicked and opened in a horizontal manner. Preperitoneal fascia was dissected away until the peritoneal cavity was entered and opened in a vertical manner. Bladder blade was placed. Peritoneum overlying the uterus was elevated, opened in a semi-lunar fashion, inferior margin of which was taken down creating the bladder flap. Uterus was entered sharply and extended in a semilunar fashion manually. Viable male infant was delivered. Nuchal cord x2 was reduced. Cord was clamped and cut, and the baby was passed off to pediatrics who was in attendance for the delivery. Cord gases and cord blood samples obtained. Placenta was delivered spontaneously. The uterus was exteriorized. The uterine cavity was clean of any residual blood tissue and/or clot. Uterine incision was then closed with 2 layers of 4-0 Vicryl, the first a running locking stitch, the second an imbricating stitch. Hemostasis achieved and the uterus was returned to the pelvic cavity. The pericolic gutters were cleared bilaterally of any blood tissue and/or clot. The pelvis was thoroughly irrigated with 1000 mL of warm saline. Uterine incision was inspected for hemostasis, which was present. Sponge and needle count was correct. Rectus muscle was then plicated in the midline with a running 2-0 Vicryl suture. The fascia was closed laterally with a running 0 Vicryl suture. The subcutaneous tissue was irrigated with warm saline. The skin incision was closed with a 4-0 Monocryl subcuticular suture. Sterile dressing was applied. The patient was taken to the recovery room in satisfactory condition. I attest to the content of the Intraoperative Record and any orders documented therein. Any exceptions are noted below. LITO
[2019-02-07] MEDS: KETOROLAC 30 MG/ML VIAL IV PRN ×2 (10:57→18:28)
[2019-02-07] MEDS: OXYTOCIN 20 UNITS in LACTATED RINGER'S 1,000 ML IV SCH ×2 (11:10→20:07)
[2019-02-07] MEDS: PRENATAL VITAMIN 1 TAB PO SCH (13:23)
[2019-02-07] MEDS: LEVOTHYROXINE SODIUM 100 MCG TABLET PO SCH (13:25)
[2019-02-07] MEDS: FERROUS SULFATE 325 MG TAB PO SCH (13:27)
[2019-02-08] MEDS: KETOROLAC 30 MG/ML VIAL IV PRN ×2 (00:43→06:24)
[2019-02-08] MEDS: LACTATED RINGER'S 1,000 ML IV SCH (04:10)
[2019-02-08] MEDS: LEVOTHYROXINE SODIUM 100 MCG TABLET PO SCH (06:24)
--- NOTE | 2019-02-08 06:50 | Anesthesiology Progress Note ---
Date of Service February 08, 2019 S> No c/o H/A,N/V,Lumbar back/spine pain,LE weakness or paresthesias or pruritus O> vital signs are stable;Pt. has been up and ambulating A/P> pt. doing well post SAB w/ duramorph for elective C section;almost 24 hours post procedure;Neurologically stable Physical Exam Vital Signs Last Vital Signs Temp 36.7 C 02/08/19 04:25 Pulse 78 02/08/19 04:25 Resp 18 02/08/19 06:15 BP 99/64 L 02/08/19 04:25 Pulse Ox 99 02/08/19 06:15 Results & Data Medications Administered Ferrous Sulfate (Feosol) 325 mg PO QAM [facility] Stop: 03/09/19 10:48 Last Admin: 02/07/19 13:27 Dose: Not Given Documented by: [id number] Lactated Ringer's (Lr) 1,000 mls @ 125 mls/hr IV .Q8H [facility] Stop: 03/09/19 06:30 Last Infusion: 02/08/19 06:15 Dose: 125 mls/hr Documented by: [id number] Admin: 02/08/19 04:10 Dose: 125 mls/hr Documented by: [id number] Infusion: 02/07/19 15:16 Dose: 125 mls/hr Documented by: [id number] Admin: 02/07/19 07:16 Dose: 125 mls/hr Documented by: [id number] Ketorolac Tromethamine (Toradol) 30 mg IV Q6H PRN PRN Reason: Breakthrough Surgical Pain Stop: 02/08/19 07:39 Last Admin: 02/08/19 06:24 Dose: 30 mg Documented by: [id number] Admin: 02/08/19 00:43 Dose: 30 mg Documented by: [id number] Admin: 02/07/19 18:28 Dose: 30 mg Documented by: [id number] Admin: 02/07/19 10:57 Dose: 30 mg Documented by: [id number] Levothyroxine Sodium (Synthroid) 100 mcg PO DAILYBB [facility] Stop: 03/09/19 10:48 Last Admin: 02/08/19 06:24 Dose: 100 mcg Documented by: [id number] Admin: 02/07/19 13:25 Dose: Not Given Documented by: [id number] Prenat Multivit/[place]/Iron/Folic Ac ( Vitamin) 1 tab PO QAM [facility] Stop: 03/09/19 10:48 Last Admin: 02/07/19 13:23 Dose: 1 tab Documented by: [id number]
--- NOTE | 2019-02-08 06:58 | Obstetrical Progress Note ---
Date of Service <Miah Salgado DO - Last Filed: 02/08/19 06:58> February 08, 2019 Assessment & Plan <Miah Salgado DO - Last Filed: 02/08/19 06:58> (1) Status post section routine follow-up: -vital signs reviewed and WNL -will remove man cath today -last Hgb 12.3 -Blood type: B+, GBS-, Rubella Immune -pt doing well clinically -encourage ambulation, monitor and control pain with motrin tylenol, cont regular diet, monitor lochia -cont encourage breast feeding <Henry Tirado Jr, MD, FACOG - Last Filed: 02/08/19 07:07> (1) Supervision of with other poor reproductive or obstetric history, unspecified trimester: Resident Physician Supervision Note: I was present with Dr. Salgado during the history and exam. I discussed the case with the resident and agree with the findings and plan as documented in the note. Any exceptions or clarifications are listed here: Discussed surgery and findings with patient. Routine post-op care, doing well Documented By: Henry Tirado Jr, MD, FACOG Subjective <Miah Salgado DO - Last Filed: 02/08/19 06:58> 38 y/o POD1 found in bed this morning in NAD. Reports no acute overnight events. Pt states that she has no pain other than appropriate soreness. Tolerating PO intake without N/V. Pt has not attempted to ambulate, was just able to stand without issue. She is breast feeding without issue. No issues with voiding, no BM yet. Complaints of some shoulder pain R side, and gassiness. No other acute concerns or complaints. Review of Systems All systems reviewed & are unremarkable except as noted in HPI & below Physical Exam <Miah Salgado DO - Last Filed: 02/08/19 06:58> Vital Signs (Past 24 Hours) Last Vital Signs Temp 36.7 C 02/08/19 04:25 Pulse 78 02/08/19 04:25 Resp 18 02/08/19 06:15 BP 99/64 L 02/08/19 04:25 Pulse Ox 99 02/08/19 06:15 Constitutional WD/WN, vitals as above Eyes PERRL, conjunctivae normal, anicteric sclerae ENMT external ear and nose normal, oropharynx normal Respiratory normal respiratory effort, lungs clear to auscultation Cardiovascular RRR, no murmur, no edema Gastrointestinal (Abdomen) mild abd tenderness Incision C/D/I Skin no rashes, warm and dry Psychiatric A+Ox3, euthymic affect Lymphatic no LE swelling, no calf tenderness Results & Data <Miah Salgado, - Last Filed: 02/08/19 06:58> Laboratory Results Laboratory Results - last 24 hr 02/07/19 02/07/19 02/07/19 05:43 08:02 08:02 Cord ABG pH 7.33 Cord ABG pCO2 52 Cord ABG pO2 28.0 Cord ABG HCO3 27 Cord ABG Base Excess -0.1 Cord ABG O2 Sat < 60.0 Cord VBG pH 7.40 Cord VBG pCO2 38 Cord VBG pO2 32 Cord VBG HCO3 23 Cord VBG Base Excess -1.9 Cord VBG O2 Sat 74.0 H Barometric Pressure 734.4 734.6 Blood Gas Comments [facility] CED[facility] Blood Type B Positive Antibody Screen NEGATIVE Medications Administered Current Inpatient Medications Hydrocodone Bitart/Acetaminophen ([place] 5/325) 1 tab PO Q4 PRN PRN Reason: Pain Stop: 02/22/19 07:37 Benzocaine (Dermoplast Pain Relieving [place]) 1 appln EXT UD PRN PRN Reason: use on skin as needed Stop: 03/09/19 10:48 Cocaine HCl (Supercream 0.870%) 1 gm EXT UD PRN PRN Reason: hemmorrhoidal inflammation Stop: 02/21/19 10:48 Diphenhydramine HCl (Benadryl) 25 mg IV Q6H PRN PRN Reason: pruritis Stop: 02/08/19 07:39 Diphenhydramine HCl (Benadryl) 25 mg IV QID PRN PRN Reason: Itching Stop: 03/10/19 07:37 Diphenhydramine HCl (Benadryl Capsule) 25 mg PO QID PRN PRN Reason: Itching Stop: 03/10/19 07:37 Ephedrine Sulfate (Ephedrine Sulfate) 10 mg IV Q5M PRN PRN Reason: Hypotension Stop: 02/08/19 07:39 Ferrous Sulfate (Feosol) 325 mg PO QAM [facility] Stop: 03/09/19 10:48 Last Admin: 02/07/19 13:27 Dose: Not Given Documented by: Hydrocortisone (Anusol Hc) 25 mg OR BID PRN PRN Reason: Hemorrhoids Stop: 03/09/19 10:48 Lactated Ringer's (Lr) 1,000 mls @ 125 mls/hr IV .Q8H [facility] Stop: 03/09/19 06:30 Last Infusion: 02/08/19 06:15 Dose: 125 mls/hr Documented by: Lactated Ringer's (Lr) 500 mls @ 999 mls/hr IV .Q31M PRN PRN Reason: Hypotension Stop: 02/08/19 07:39 Naloxone HCl 1 mg/ Sodium (Chloride) 1,002.5 mls @ 50 mls/hr IV .Q20H3M PRN PRN Reason: itching or nausea Stop: 02/08/19 07:39 Naloxone HCl 1 mg/ Sodium (Chloride) 1,002.5 mls @ 50 mls/hr IV .Q20H3M PRN PRN Reason: itching or nausea Stop: 02/08/19 07:39 Naloxone HCl 0.08 mg/ Syringe 2 mls @ 1 mls/min IV Q30M PRN; Protocol PRN Reason: Urinary Retention Stop: 02/08/19 07:39 Sodium Chloride (Nss 1000ml) 1,000 mls @ 15 mls/hr IV .Q24H [facility] Stop: 02/08/19 07:39 Promethazine HCl 25 mg/ Sodium (Chloride) 51 mls @ 204 mls/hr IV Q6H PRN PRN Reason: Nausea And Vomiting Stop: 02/08/19 07:39 Lactated Ringer's (Lr) 1,000 mls @ 125 mls/hr IV .Q8H [facility] Stop: 03/09/19 10:48 Ibuprofen (Motrin) 600 mg PO Q4H PRN PRN Reason: Pain Stop: 03/09/19 10:48 Ketorolac Tromethamine (Toradol) 30 mg IV Q6H PRN PRN Reason: Breakthrough Surgical Pain Stop: 02/08/19 07:39 Last Admin: 02/08/19 06:24 Dose: 30 mg Documented by: Ketorolac Tromethamine (Toradol) 30 mg IV Q6H PRN PRN Reason: Pain Stop: 02/13/19 07:37 Levothyroxine Sodium (Synthroid) 100 mcg PO DAILYBB [facility] Stop: 03/09/19 10:48 Last Admin: 02/08/19 06:24 Dose: 100 mcg Documented by: Magnesium Hydroxide (Milk Of Magnesia) 30 ml PO [facility] Stop: 03/10/19 20:59 Miscellaneous (No Narcotics Or Sedatives) 1 ea N/A UD [facility] Stop: 02/08/19 07:39 Miscellaneous Information (Dc Intraspinal Morphine) 1 ea N/A TODAY@0738 [facility] Stop: 02/08/19 07:39 Nalbuphine HCl (Nubain) 5 mg IV Q10M PRN PRN Reason: itching or nausea Stop: 02/08/19 07:39 Naloxone HCl (Narcan) 0.1 mg IV UD PRN PRN Reason: Respiratory Depression Stop: 02/08/19 07:39 Ondansetron HCl (Zofran) 4 mg IV Q6H PRN PRN Reason: Nausea And Vomiting Stop: 02/08/19 07:39 Ondansetron HCl (Zofran) 4 mg IV Q4H PRN PRN Reason: Nausea And Vomiting Stop: 03/10/19 07:37 Prenat Multivit/[employer]/Iron/Folic Ac ( Vitamin) 1 tab PO QAM [facility] Stop: 03/09/19 10:48 Last Admin: 02/07/19 13:23 Dose: 1 tab Documented by: Sennosides (Senokot) 17.2 mg PO [facility] Stop: 03/10/19 20:59 Resident Activity Tracking <Miah Salgado DO - Last Filed: 02/08/19 06:58> Resident Involvement: Resident Care Provided Care Provided: OB Delivery
[2019-02-08] MEDS ORDERED: DiphenhydrAMINE HCL 50 MG/ML VIAL IV PRN ×2 (07:38→07:39)
[2019-02-08] MEDS ORDERED: DC INTRASPINAL MORPHINE SCH ×2 (07:38)
[2019-02-08] MEDS ORDERED: ONDANSETRON INJ 2 MG/ML 2 ML VIAL IV PRN (07:38)
[2019-02-08] MEDS ORDERED: KETOROLAC 30 MG/ML VIAL IV PRN (07:38)
[2019-02-08 08:16] LABS: Basophils # (auto) 0.02 K/uL (0-0.2); Basophils % (auto) 0.2 %; Eosinophils # (auto) 0.01 K/uL (0-0.5); Eosinophils % (auto) 0.1 %; Hematocrit (blood only) 28.2 % (37-47); Hemoglobin 9.8 g/dL (12.0-16.0); Immature Granulocytes # (auto) 0.05 K/uL (0.00-0.02); Immature Granulocytes % (auto) 0.4 %; Lymphocytes # (auto) 2.26 K/uL (1.2-3.4); Lymphocytes % (auto) 18.9 %; Mean Corpuscular Hgb Conc 34.8 g/dL (32-36); Mean Corpuscular Volume 91.6 fL (80-100); Mean Platelet Volume 10.8 fL (7.4-10.4); Monocytes # (auto) 1.07 K/uL (0.11-0.59); Monocytes % (auto) 8.9 %; Neutrophils # (auto) 8.56 K/uL (1.4-6.5); Neutrophils % (auto) 71.5 %; Platelet Count 198 K/uL (130-400); RDW Coefficient of Variation 13.2 % (11.5-14.5); RDW Standard Deviation 43.8 fL (36.4-46.3); Red Blood Count 3.08 M/uL (4.2-5.4); White Blood Count 11.97 K/uL (4.8-10.8)
[2019-02-08] MEDS: PRENATAL VITAMIN 1 TAB PO SCH (08:58)
[2019-02-08] MEDS: HYDROCODONE/ACETAMOPHEN 5/325MG TAB PO PRN ×3 (08:58→19:53)
[2019-02-08] MEDS: FERROUS SULFATE 325 MG TAB PO SCH (08:59)
[2019-02-08] MEDS: SIMETHICONE 80 MG CHEW PO PRN ×2 (13:07→19:09)
[2019-02-08] MEDS: IBUPROFEN 600 MG TAB PO PRN ×2 (13:10→19:53)
[2019-02-08] MEDS: SENNA 8.6 MG TAB PO SCH (20:56)
[2019-02-08] MEDS: MAGNESIUM HYDROXIDE SUSP 30 ML UDC PO SCH (20:57)
[2019-02-09] MEDS: SIMETHICONE 80 MG CHEW PO PRN (02:52)
[2019-02-09] MEDS: IBUPROFEN 600 MG TAB PO PRN ×4 (02:54→20:02)
[2019-02-09] MEDS: HYDROCODONE/ACETAMOPHEN 5/325MG TAB PO PRN ×4 (02:54→20:02)
[2019-02-09] MEDS: LEVOTHYROXINE SODIUM 100 MCG TABLET PO SCH (06:14)
--- NOTE | 2019-02-09 06:38 | Obstetrical Progress Note ---
Date of Service <Miahpedro Salgado DO - Last Filed: 02/09/19 06:38> February 09, 2019 Assessment & Plan <Miahjavid Salgado DO - Last Filed: 02/09/19 06:38> (1) Status post section routine follow-up: -vital signs reviewed and WNL -will remove man cath today -last Hgb 9.8 --> ferrous sulfate 325 mg -Blood type: B+, GBS-, Rubella Immune -pt doing well clinically -encourage ambulation, monitor and control pain with motrin tylenol, cont regular diet, monitor lochia -cont encourage breast feeding -plan for d/c today Subjective <Miah Salgado DO - Last Filed: 02/09/19 06:38> 38 y/o POD2 found in bed this morning in NAD. Reports no acute overnight events. Pt states that she has no pain other than appropriate soreness. Tolerating PO intake without N/V. Able to ambulate without issue. She is breast feeding without issue. No issues with voiding, no BM yet. No other acute concerns or complaints. Pt ok with plan for possible d/c today. Review of Systems All systems reviewed & are unremarkable except as noted in HPI & below Physical Exam <Miah Salgado DO - Last Filed: 02/09/19 06:38> Vital Signs (Past 24 Hours) Last Vital Signs Temp 36.7 C 02/08/19 22:50 Pulse 87 02/08/19 22:50 Resp 16 02/08/19 22:50 BP 100/63 02/08/19 22:50 Pulse Ox 98 02/08/19 22:50 Constitutional WD/WN, vitals as above Eyes PERRL, conjunctivae normal, anicteric sclerae ENMT external ear and nose normal, oropharynx normal Respiratory normal respiratory effort, lungs clear to auscultation Cardiovascular RRR, no murmur, no edema Gastrointestinal (Abdomen) mild abd tenderness Incision C/D/I Skin no rashes, warm and dry Psychiatric A+Ox3, euthymic affect Lymphatic no LE swelling, no calf tenderness Results & Data <Miah Salgado DO - Last Filed: 02/09/19 06:38> Laboratory Results Laboratory Results - last 24 hr 02/08/19 07:24 WBC 11.97 H RBC 3.08 L Hgb 9.8 L Hct 28.2 L MCV 91.6 MCH 31.8 MCHC 34.8 RDW Std Deviation 43.8 RDW Coeff of [place] 13.2 Plt Count 198 MPV 10.8 H Immature Gran % (Auto) 0.4 Neut % (Auto) 71.5 Lymph % (Auto) 18.9 [place] % (Auto) 8.9 Eos % (Auto) 0.1 Baso % (Auto) 0.2 Immature Gran # (Auto) 0.05 H Neut # (Auto) 8.56 H Lymph # (Auto) 2.26 [place] # (Auto) 1.07 H Eos # (Auto) 0.01 Baso # (Auto) 0.02 Medications Administered Current Inpatient Medications Hydrocodone Bitart/Acetaminophen ([place] 5/325) 1 tab PO Q4 PRN PRN Reason: Pain Stop: 02/22/19 07:37 Last Admin: 02/09/19 02:54 Dose: 1 tab Documented by: Benzocaine (Dermoplast Pain Relieving [place]) 1 appln EXT UD PRN PRN Reason: use on skin as needed Stop: 03/09/19 10:48 Cocaine HCl (Supercream 0.870%) 1 gm EXT UD PRN PRN Reason: hemmorrhoidal inflammation Stop: 02/21/19 10:48 Diphenhydramine HCl (Benadryl) 25 mg IV QID PRN PRN Reason: Itching Stop: 03/10/19 07:37 Diphenhydramine HCl (Benadryl Capsule) 25 mg PO QID PRN PRN Reason: Itching Stop: 03/10/19 07:37 Ferrous Sulfate (Feosol) 325 mg PO QAM [facility] Stop: 03/09/19 10:48 Last Admin: 02/08/19 08:59 Dose: 325 mg Documented by: Hydrocortisone (Anusol Hc) 25 mg PA BID PRN PRN Reason: Hemorrhoids Stop: 03/09/19 10:48 Lactated Ringer's (Lr) 1,000 mls @ 125 mls/hr IV .Q8H [facility] Stop: 03/09/19 06:30 Last Infusion: 02/08/19 09:03 Dose: Infused Documented by: Lactated Ringer's (Lr) 1,000 mls @ 125 mls/hr IV .Q8H [facility] Stop: 03/09/19 10:48 Ibuprofen (Motrin) 600 mg PO Q4H PRN PRN Reason: Pain Stop: 03/09/19 10:48 Last Admin: 02/09/19 02:54 Dose: 600 mg Documented by: Ketorolac Tromethamine (Toradol) 30 mg IV Q6H PRN PRN Reason: Pain Stop: 02/13/19 07:37 Levothyroxine [facility] ([facility]) [facility] Stop: 03/09/19 10:48 Last Admin: 02/09/19 06:14 Dose: 100 mcg Documented by: Magnesium Hydroxide (Milk Of Magnesia) 30 ml PO [facility] Stop: 03/10/19 20:59 Last Admin: 02/08/19 20:57 Dose: 30 ml Documented by: Ondansetron HCl (Zofran) 4 mg IV Q4H PRN PRN Reason: Nausea And Vomiting Stop: 03/10/19 07:37 Prenat Multivit/[place]/Iron/Folic Ac ( Vitamin) [facility] Stop: 03/09/19 10:48 Last Admin: 02/08/19 08:58 Dose: 1 tab Documented by: Sennosides (Senokot) 17.2 mg PO [facility] Stop: 03/10/19 20:59 Last Admin: 02/08/19 20:56 Dose: 17.2 mg Documented by: Simethicone (Mylicon) 80 mg PO Q6H PRN PRN Reason: Gas or Constipation Stop: 03/10/19 09:43 Last Admin: 02/09/19 02:52 Dose: 80 mg Documented by: <Henny León MD - Last Filed: 02/09/19 07:08> Co-Signing Physician Notes I have examined the patient and agree with the resident note above except that man already out and patient voiding normally. May be interested in d/c today pending infant workup being complete. Resident Activity Tracking <Miah Salgado DO - Last Filed: 02/09/19 06:38> Resident Involvement: Resident Care Provided Care Provided: OB Delivery
[2019-02-09 07:05] LABS: Hemoglobin 9.6 g/dL (12.0-16.0)
[2019-02-09] MEDS: PRENATAL VITAMIN 1 TAB PO SCH (09:06)
[2019-02-09] MEDS: FERROUS SULFATE 325 MG TAB PO SCH (09:06)
[2019-02-09] MEDS: BISACODYL 10 MG SUPP PR PRN (09:28)
[2019-02-09] MEDS: SENNA 8.6 MG TAB PO SCH (20:01)
[2019-02-09] MEDS: MAGNESIUM HYDROXIDE SUSP 30 ML UDC PO SCH (20:01)
[2019-02-10] MEDS: HYDROCODONE/ACETAMOPHEN 5/325MG TAB PO PRN ×2 (06:35→12:28)
[2019-02-10] MEDS: LEVOTHYROXINE SODIUM 100 MCG TABLET PO SCH (06:35)
[2019-02-10] MEDS: IBUPROFEN 600 MG TAB PO PRN ×2 (06:36→12:28)
[2019-02-10] MEDS: SIMETHICONE 80 MG CHEW PO PRN (07:27)
[2019-02-10] MEDS: PRENATAL VITAMIN 1 TAB PO SCH (07:28)
[2019-02-10] MEDS: FERROUS SULFATE 325 MG TAB PO SCH (07:28)
--- NOTE | 2019-02-10 09:32 | Obstetrical Progress Note ---
Date of Service February 10, 2019 Assessment & Plan (1) Status post section routine follow-up: POD#3, doing well. Discharge home today. Teaching done. Will monitor incision, will come to office in 1 week for incision check. Subjective POD#3 doing well. Ambulating, eating/drinking well. Urinating and bowels ok. Has some puffiness around incision, this is the same as last night. Physical Exam Vital Signs (Past 24 Hours): Last Vital Signs Temp 36.6 C 02/10/19 07:30 Pulse 79 02/10/19 07:30 Resp 18 02/10/19 07:30 BP 113/70 02/10/19 07:30 Pulse Ox 98 02/10/19 07:30 Physical Exam: Gen: AAOx3 NAD CV: RRR L: CTAB Abd: soft, NTTP. incision is CDI. there is some induration around incision, no erythema, not hot to touch. Ext: no edema
[2019-02-10] MEDS: BISACODYL 10 MG SUPP PR PRN (10:23)
--- NOTE | 2019-02-11 05:50 | Discharge Summary ---
ADMITTING DIAGNOSES: 1. Term . 2. Previous fourth-degree laceration with complications. 3. Desired elective section. DISCHARGE DIAGNOSES: Same. PROCEDURES PERFORMED: Primary low cervical transverse section. DISCHARGE MEDICATIONS: Vicodin 5 mg 1 p.o. q. 4-6 hours p.r.n. pain. ADMISSION HISTORY: The patient is a 38-year-old 2, para 1 with an EDC of February 14 by dates and first trimester ultrasound, who is admitted for an elective primary section. The patient's first was complicated by fourth-degree tear which required 2 repairs. The patient had been counseled about this and has elected to have a primary section. The patient has had a benign course. Blood type show a blood type of B positive, antibody negative, rubella immune, hepatitis B negative. She had a negative cell-free DNA screen, she had an elevated 1-hour Glucola at 28 weeks with a normal 2-hour glucose tolerance test, and she had a negative third trimester beta strep culture. ADMISSION PHYSICAL EXAMINATION: GENERAL: Showed a gravid female in no acute distress. VITAL SIGNS: Blood pressure 100/70, weight of 149 pounds. HEENT: Unremarkable. NECK: Supple. LUNGS: Clear. HEART: With a regular rhythm and rate. ABDOMEN: Gravid, vertex, positive heart tones, estimated weight of 7-1/2 pounds. PELVIC: Deferred. EXTREMITIES: Showed no deep calf tenderness. NEUROLOGIC: Grossly intact. ADMISSION LABORATORY VALUES: Showed an H and H of 12.3 and 36.8. HOSPITAL COURSE: On day of admission, patient was taken to the operating room where she underwent the above-listed procedures. Operative findings showed a viable male infant with Apgars of 8 and 9 and a weight of 7 pounds 8 ounces, normal appearing tubes and ovaries bilaterally. Postoperatively, the patient did well. King catheter was removed on the first postoperative day. H and H came back at 9.8 and 28.2. By the 3rd postoperative day, the patient was ambulating without difficulty and tolerating a regular diet. She will follow up in the office in 2 weeks for a wound check, but as always she has been instructed to call with any questions, problems, or difficulties.
== END 2019-02-10 13:42 | disposition home or self-care (01) | DRG 788 ==
LOC: 4S1 05:27 → EDSTATUS 07:30 → 4S2 12:16